=== PATIENT | female | born 1965 | race Caucasian/White ===

== ENCOUNTER 2017-06-12 22:54 | Emergency (ER) | payer OTHER ==
[2017-06-12 22:59] VITALS: BMI 27.4
[2017-06-12 23:03] VITALS: RESP 18; TEMP 98.1
[2017-06-12] MEDS ORDERED: Morphine 2 mg/ml ISec IVP STA (23:17)
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
[2017-06-13 01:03] VITALS: PULSE 66
[2017-06-13 02:09] VITALS: BP 159/99; O2SAT 100
--- NOTE | 2017-06-13 09:28 | RAD ---
PROCEDURE: Bilateral Knee Radiographs. HISTORY: s/p fall COMPARISON: None. FINDINGS: BONES: Bone alignment and mineralization are normal. There is no acute displaced fracture or bone destruction. Status post open reduction and internal fixation of proximal femoral fracture. No evidence of hardware complications. JOINTS: Right Knee: Normal. No osteoarthritis. Left knee: Normal. No osteoarthritis. SOFT TISSUES: Right Knee: Normal. Left Knee: Normal. JOINT EFFUSION: Right Knee: None. Left Knee: None. OTHER FINDINGS: None. IMPRESSION: No acute displaced fracture or dislocation.
--- NOTE | 2017-06-13 09:36 | RAD ---
PROCEDURE: Radiographs of the pelvis and bilateral hips HISTORY: s/p fall COMPARISON: None. FINDINGS: BONES: The pelvic ring is intact. There is no acute displaced fracture or bone destruction. Status post open reduction and internal fixation of right intertrochanteric fracture with dynamic screw. There is an old fracture deformity in the intertrochanteric region. No acute displaced fracture or bone destruction. No evidence of hardware complications. JOINTS: Both hip joint spaces are preserved. The sacroiliac joints are normal. There is mild osteitis pubis. SOFT TISSUES: Normal. OTHER FINDINGS: None. IMPRESSION: No acute displaced fracture or dislocation. Please note occult fractures cannot be excluded on plain radiographs. If there is a persistent clinical concern, an MRI of the hip may be performed for further evaluation.
== END 2017-06-13 02:40 | disposition home or self-care (01) ==
LOC: ED 22:54
DX: S83.91XA Sprain of unspecified site of right knee, initial encounter (principal); W01.0XXA Fall on same level from slipping, tripping and stumbling without subsequent striking against object, initial encounter; Y93.H9 Activity, other involving exterior property and land maintenance, building and construction; Y92.89 Other specified places as the place of occurrence of the external cause; Y99.8 Other external cause status
CPT/HCPCS: 73521; 73562; 96374; 99285; J1885